=== PATIENT | male | born 1950 | race Caucasian/White ===

== ENCOUNTER 2017-11-16 06:28 | Outpatient (CLI) | payer OTHER ==
[~2017-11-16 06:28] MED LIST: Prevnar 13-Val Conj/PF 0.5 ML SYRINGE IM ONE
[2017-11-16 07:53] VITALS: TEMP 99.1
[2017-11-16] MEDS ORDERED: HYDROcodone/Acetaminophen 10/325 mg Tablet ONE (09:23)
--- NOTE | 2017-11-16 09:50 | RAD ---
CERVICAL SPINE MYELOGRAM INDICATION: Cervical spondylosis, neck pain, cervical myelopathy. PROCEDURE: After informed consent had been obtained, the patient was escorted to the interventional suite and pl aced on the procedural table. 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 The patient was placed into a prone posi tion. Skin on the low back was then prepped and draped in the standard sterile fashion and topical a nd regional soft tissue anesthesia was achieved with 1% lidocaine and sodium bicarbonate. Posterior L3-4 interlaminar approach was selected, and a 22 gauge needle was uneventfully advanced into the th ecal sac with clear color CSF. Subsequently, 9 cc Isovue-M 300 was instilled into the thecal sac und er real time fluoroscopy. Appropriate opacification of thecal sac demonstrated with imaging stored f or confirmation. The needle was then removed from the patient. The patient tolerated the procedure well and was then transferred to CT to undergo subsequent myelogram. Reference separate report for f ull details. IMPRESSION: Technically successful cervical myelogram as detailed above. POS: [facility]
--- NOTE | 2017-11-16 10:15 | CT ---
CERVICAL SPINE CT WITH CONTRAST CT CERVICAL MYELOGRAM: INDICATION: Cervical spondylosis with cervical myelopathy. 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 FINDINGS: Anterior metallic fusion is present involving the C5 and C6 segments. There is anterior osseous fusi on of the C3 through C5 segments as well as partial posterior osseous fusion. Degenerative hypertrophy at the C1-2 level is present. No high-grade central canal stenosis of C1-2 or C2-3 levels. At C2-3 level, neural foramen are patent. C3-4: Broad-based osteophyte is present, most focal at the right paracentral region. This mildly ef faces the ventral thecal sac. There is uncinate process hypertrophy with mild narrowing of the right neural foramen. The left neural foramen is patent. C4-5: Broad-based osteophyte produces mild effacement of the ventral thecal sac. There is no signif icant foraminal stenosis. C5-6: Broad-based osteophyte results in mild effacement of the ventral thecal sac. There is bilater al uncinate process hypertrophy with mild bilateral neural foraminal narrowing. C6-7: There is no significant compromise of the central canal or neural foramina. BROAD-BASED osteo phyte mildly effaces the ventral thecal sac. C7-T1: No high-grade central canal or neural foraminal stenosis. There is multilevel bilateral degenerative facet hypertrophy throughout the cervical spine. With regard to C6 level vertebral body screws, these approximate the inferior end plate and there is perihardware lucency about each of the C6 vertebral body screws. This indicates hardware loosening. IMPRESSION: 1. Multilevel degenerative change of the postoperative cervical spine, as outlined above. 2. There is lucency about the 2 indwelling C6 vertebral body screws indicative of hardware loosening . Recommend clinical correlation in this regard. POS: [facility]
[2017-11-16] MEDS ORDERED: Iopamidol-M 300 61% 15 ML VIAL ONE (15:08)
== END 2017-11-16 10:35 | disposition home or self-care (01) ==
LOC: RAD 06:28
PROVIDERS: ATTEND Neurological Surgery
DX: M47.12 Other spondylosis with myelopathy, cervical region (principal); M99.81 Other biomechanical lesions of cervical region; Z98.1 Arthrodesis status
CPT/HCPCS: 62302; 72126

== ENCOUNTER 2018-01-23 07:06 | Inpatient (IN) | payer OTHER ==
[2018-01-23] MEDS ORDERED: CEFAZOLIN/Water 2 GM/20 ML SYRINGE ONE (07:39)
[2018-01-23 07:59] LABS: Hemoglobin 11.9 g/dL (14.0-18.0); Mean Platelet Volume 6.2 fL (7.4-10.4); Platelet Count 172 thou/uL (130-400); RBC Distribution Width 11.1 % (11.5-14.5); Red Blood Cell (RBC) Count 3.83 mill/uL (4.70-6.10); White Blood Cell (WBC) Count 5.3 thou/uL (4.8-10.8)
[2018-01-23] MEDS ORDERED: Clindamycin/D5W 900 mg/50 ml Premix Bag ONE (08:12)
[2018-01-23 08:13] LABS: Anion Gap 12 mmol/L (10-20); BUN (Urea Nitrogen) 15 mg/dL (8.4-25.7); Calc. Creatinine Clearance 96 mL/min (70-130); Calcium 9.3 mg/dL (7.8-10.44); Carbon Dioxide 26 mmol/L (23-31); Chloride 105 mmol/L (98-107); Estimated GFR-MDRD Greater than 90; Glucose 88 mg/dL (80-115); Potassium 3.9 mmol/L (3.5-5.1); Sodium 139 mmol/L (136-145)
[2018-01-23] MEDS ORDERED: Levofloxacin 500 mg/D5W 100 ml Premix Bag ONE (08:13)
[2018-01-23 08:19] LABS: Eosinophils 2 % (0-10); Lymphocytes 46 % (21-51); MDiff Complete? YES; Metamyelocyte 1 % (0-0); Monocytes 7 % (0-10); Neutrophil 40 % (42-75); RBC Morphology Normal; Reactive Lymphocytes 2 % (0-10)
[2018-01-23] MEDS ORDERED: Midazolam HCl 2 mg/2 ml Vial ONE (09:59)
[2018-01-23] MEDS ORDERED: Fentanyl 100 MCG/2 ML VIAL ONE ×4 (09:59→13:44)
[2018-01-23] MEDS ORDERED: Sodium Chloride 0.9% 10 ML ONE (10:25)
[2018-01-23] MEDS ORDERED: Thrombin 5000 UNITS/5 ML VIAL ONE (10:25)
[2018-01-23] MEDS ORDERED: Bacitracin Zinc Ointment 30 gm TUBE ONE (10:25)
[2018-01-23] MEDS ORDERED: Lidocaine 2% Jelly 5 ML TUBE ONE (10:47)
[2018-01-23] MEDS ORDERED: PHENYLEPHRINE-NS 100 MCG/ML 10 ML SYRINGE ONE ×2 (12:17→12:31)
[2018-01-23] MEDS ORDERED: Dexamethasone 20 MG/5 ML VIAL ONE (12:31)
[2018-01-23] MEDS ORDERED: PROPOFOL 200 MG/20 ML VIAL ONE (12:31)
[2018-01-23] MEDS ORDERED: Glycopyrrolate 0.2 MG/ML 5 ML SYRINGE ONE (12:31)
[2018-01-23] MEDS ORDERED: Ondansetron HCl/PF 4 MG/2 ML Vial ONE (12:31)
[2018-01-23] MEDS ORDERED: Morphine 4 MG/ML Carpuject SLOW IVP PRN (13:15)
[2018-01-23] MEDS ORDERED: HYDROcodone/Acetaminophen 10/325 mg Tablet PO PRN (13:15)
[2018-01-23] MEDS ORDERED: diphenhydrAMINE 50 MG/ML VIAL IVP PRN (13:15)
[2018-01-23] MEDS ORDERED: Milk Of Magnesia 30 ML UDCUP PO PRN (13:15)
[2018-01-23] MEDS ORDERED: Promethazine HCl 12.5 MG SUPP PR PRN (13:15)
[2018-01-23] MEDS ORDERED: Mag-Al 1200 mg/1200 mg/30 ML UDCUP PO PRN (13:15)
[2018-01-23] MEDS ORDERED: traMADol HCl 50 MG TAB PO PRN ×2 (13:15)
[2018-01-23] MEDS ORDERED: Promethazine HCl 25 MG/ML VIAL IM PRN ×2 (13:15→13:16)
[2018-01-23] MEDS ORDERED: diphenhydrAMINE 25 MG CAP PO PRN (13:15)
[2018-01-23] MEDS ORDERED: Promethazine 25 MG TAB PO PRN (13:15)
[2018-01-23] MEDS ORDERED: Promethazine HCl 25 MG/ML VIAL SLOW IVP PRN (13:16)
[2018-01-23] MEDS ORDERED: Ondansetron HCl/PF 4 MG/2 ML Vial IVP PRN ×2 (13:16→13:18)
[2018-01-23] MEDS ORDERED: Promethazine HCl 25 MG/ML VIAL ONE (13:31)
--- NOTE | 2018-01-23 13:33 | OP ---
DATE OF PROCEDURE: 01/23/2018 SURGEON: Harley Oneal M.D. RADIATION THERAPY TECHNOLOGIST: Margie Godoy PA-C. PROCEDURES: Removal of hardware C5-C6, exploration of spinal fusion C5-C6, interbody arthrodesis C5- C6 and C6-C7, intervertebral biomechanical device C6-C7, anterior titanium instrumentation C5-C7, dem ineralized bone matrix and local morselized autograft, posterior approach C5-C7, posterolateral arthr odesis, lateral mass screw instrumentation, demineralized bone matrix, local morselized autograft C5- C7. PROCEDURE IN DETAIL: The patient was brought into the operating room and intubated. He was position ed supine with head in modest extension on a gel-filled donut. Previous incision was reopened in the right precervical area and dissecting medial to the sternocleidomastoid muscle identified the previo us plate that was removed without difficulty. We explored the spinal fusion. It did not seem to be solid. The disk space itself, however, was completely collapsed and irregular and could not be adequ ately accessed for placing the intravertebral device, although was scraped out for the purpose of art hrodesis. We placed distraction across C6-C7, debrided anterior osteophytes and removed the intraver tebral disc. The bony endplates were decorticated for the purpose of arthrodesis and an appropriatel y sized intravertebral biomechanical PEEK device was then brought into the field, filled with deminer alized bone matrix and local morselized autograft and tapped into place securely at C6-C7. Next, an anterior plate was brought into the field and secured to C5 and to C7 using two 14 mm screws at each level. The wound was then extensively irrigated, immaculate hemostasis was secured and the wound was closed in anatomic layers over a drain. The patient was then rolled in the prone position with the head fixed in the yanira nailhead setter in a neutral position on gel-filled chest rolls. The posterior cervical incision was made in the midline exposing C5 through C7 and our level was confirmed by x-ray. We placed right C5, C6 and C7 lateral m ass screws. A leni was secured between the screws, connected by nuts, which were final tightened. Th e wound was then extensively irrigated, immaculate hemostasis was secured. A combination of deminera lized bone matrix and local morselized autograft was laid over the left laminar and posterolateral potts rfaces for the purpose of arthrodesis. Vancomycin powder was applied and the wound was then closed i n anatomic layers.
[2018-01-23] MEDS ORDERED: HYDROmorphone 2 MG/ML VIAL ONE ×3 (13:54→14:23)
[2018-01-23] MEDS ORDERED: Ketamine 50 MG/ML VIAL ONE (14:39)
[2018-01-23] MEDS ORDERED: Cyclobenzaprine 10 MG TAB PO PRN (16:26)
[2018-01-23] MEDS: Sodium Chloride 0.9% 1,000 ML IV SCH (16:30)
[2018-01-23] MEDS ORDERED: Ondansetron ODT 4 MG TAB PO PRN (16:30)
[2018-01-23] MEDS ORDERED: Morphine 4 MG/ML VIAL SLOW IVP PRN (17:21)
--- NOTE | 2018-01-23 17:23 | CON ---
DATE OF CONSULTATION: 01/23/2018 TIME OF SERVICE: 16:45 REASON FOR CONSULTATION: Medical management status post anterior cervical diskectomy and fusion/cerv ical laminectomy. HISTORY OF PRESENT ILLNESS: Mr. Jenkins is a 67-year-old white male with history of hypertension, pep tic ulcer disease, anxiety, dysphagia and cervical radiculopathy who is now postop day 0 from an ante rior cervical diskectomy and fusion/cervical laminectomy by Dr. Harley Oneal. There were no not ed intraoperative complications. Primary care physician is out of town and we have been consulted fo r medical management postop. The patient has no current complaints. He is still somewhat groggy fro m anesthesia, but says the pain is under fairly good control right now. Denies any chest pain, shortness of breath or nausea or vomiting. PAST MEDICAL HISTORY: 1. Hypertension. 2. Peptic ulcer disease. 3. Anxiety. 4. Dysphagia. 5. Cervical radiculopathy. PAST SURGICAL HISTORY: Includes, 1. C-spine surgery x2. 2. Lumbar surgery x1. 3. Spinal stimulator implantation. HOME MEDICATIONS: 1. Lisinopril 10 mg p.o. q.a.m. 2. Hydrocodone/APAP 10/325 two p.o. q.4 hours p.r.n. 3. Flexeril 10 mg p.o. t.i.d. p.r.n. 4. Clonazepam 1 mg p.o. q.a.m. 5. Aspirin 325 mg daily, on hold for the last week. 6. Gabapentin 300 mg p.o. as needed. 7. Mirtazapine 15 mg p.o. at bedtime. 8. Omeprazole 20 mg p.o. q.a.m. 9. Zofran ODT 4 mg p.o. p.r.n. nausea, vomiting. ALLERGIES: 1. CODEINE causes severe nausea and vomiting, but not a true allergy. 2. PENICILLIN caused hives. FAMILY HISTORY: Significant for hypertension, COPD, cerebrovascular disease and coronary artery dise ase. SOCIAL HISTORY: Significant for occasional alcohol, no tobacco, no IV drug use history. REVIEW OF SYSTEMS: All systems reviewed and negative except stated as per HPI. PHYSICAL EXAMINATION: VITAL SIGNS: The patient is afebrile. His vital signs are normal. Please see the nursing intake sh eet. GENERAL: He is awake. He is alert. He is oriented x3, somewhat groggy and appears to be in no acut e distress. He is a thin white male, appears to be comfortable. HEENT: Normocephalic, atraumatic. Pupils are equal, round, reactive to light bilaterally, mucous me mbranes are moist. No visible lesions. No thrush. Nasal cannula in place. NECK: Supple. He has an anterior postop dressing that was not removed. Range of motion was not beata arin and he has no JVD. Normal carotid upstroke. There are no bruits. LUNGS: Clear to auscultation bilaterally with good air movement. Symmetrical chest excursion. No p rolonged expiratory face. No wheeze, no rales, no rhonchi. CARDIOVASCULAR: Normal S1 and S2. No S3 or S4. No audible murmurs. ABDOMEN: Soft, scaphoid, nontender, nondistended. He has got normoactive bowel sounds present in al l upper quadrants. There is no rebound, rigidity or guarding. EXTREMITIES: Showed no clubbing, no edema. He has got 2+ dorsalis pedis, posterior tibial, and radi al pulses bilaterally. SKIN: Warm, moist, and well perfused. There are no rashes or lesions. IV sites are intact. MUSCULOSKELETAL: Exam is unremarkable. Large joints appear normal. There is no evidence of inflamm ation. No palpable effusions. NEUROLOGIC: Cranial nerves II through XII are grossly intact. He has got 5/5 strength in all 4 of h is extremities. No focal deficits. Normal speech pattern. LABORATORY DATA: Preop labs this morning show sodium of 139, potassium 3.9, chloride 105, bicarb 26, BUN 15, creatinine 0.83, glucose 88 and calcium 9.3. CBC showed a white count of 5.3, hemoglobin 11.9, hematocrit 36.0, platelet count 172,000 with a norm al differential. ASSESSMENT AND PLAN: 1. Hypertension, essential. Continue home medications. 2. Peptic ulcer disease. Continue acid suppression with omeprazole or formulary equivalent. 3. Anxiety on clonazepam. We will continue. 4. History of dysphagia. 5. Cervical radiculopathy status post anterior cervical diskectomy and fusion/laminectomy. Postop c are routine per Dr. Oneal. Pain control per Dr. Oneal. Thank you very much for this consult. I will follow along with you.
[2018-01-23] MEDS: Clindamycin/D5W 900 MG in Premix Bag 1 BAG IVPB SCH (18:46)
[2018-01-23] MEDS: HYDROcodone/Acetaminophen 10/325 mg Tablet PO PRN (19:00)
[2018-01-23] MEDS ORDERED: Prevnar 13-Val Conj/PF 0.5 ML SYRINGE IM ONE (19:45)
[2018-01-23] MEDS: Mirtazapine 15 MG TAB PO SCH (21:13)
[2018-01-23] MEDS: tiZANidine HCl 4 MG TAB PO PRN (22:33)
[2018-01-24] MEDS: HYDROcodone/Acetaminophen 10/325 mg Tablet PO PRN ×6 (01:28→23:16)
[2018-01-24] MEDS: Clindamycin/D5W 900 MG in Premix Bag 1 BAG IVPB SCH ×2 (01:29→10:38)
[2018-01-24] MEDS: Sodium Chloride 0.9% 1,000 ML IV SCH (02:36)
[2018-01-24] MEDS: Gabapentin 300 MG CAP PO PRN (06:29)
[2018-01-24] MEDS: Lisinopril 10 MG TAB PO SCH (08:26)
[2018-01-24] MEDS: clonazePAM 1 MG TAB PO SCH (08:26)
[2018-01-24] MEDS: tiZANidine HCl 4 MG TAB PO PRN (08:31)
[2018-01-24] MEDS ORDERED: MILK THISTLE SEED EXTRACT PO SCH (09:00)
--- NOTE | 2018-01-24 13:33 | PDOC.PN ---
- Subjective Encounter Start Date: 01/24/18 Encounter Start Time: 11:00 sleeping soundly, pain fairly well controlled, eating and swallowing NSG planning to discharge tomorrow. ROYA drains discontinued No F/C, no N/V/D/C, no CP or SOB, no acute overnight events, no new complaints All systems reviewed and neg except as stated above - Objective Resuscitation Status: Resuscitation Status FULL:Full Resuscitation MAR Reviewed: Yes Vital Signs & Weight: Vital Signs (12 hours) Temp Pulse Resp BP BP Pulse Ox 01/24/18 08:26 129/74 01/24/18 08:00 98.4 F 101 H 18 129/74 96 01/24/18 06:31 101 H 97/58 L 01/24/18 04:32 98.4 F 115 H 18 95/58 L 96 Weight Weight 175 lb I&O: 01/23/18 01/24/18 01/25/18 06:59 06:59 06:59 Intake Total 1050 Output Total 15 5 Balance 1035 -5 Result Diagrams: 01/23/18 07:45 01/23/18 07:44 Phys Exam - Physical Examination Constitutional: NAD HEENT: PERRLA, moist MMs, sclera anicteric, oral pharynx no lesions Neck: no nodes, no JVD, supple dressing C/D/I, no strikethrough Respiratory: no wheezing, no rales, no rhonchi, clear to auscultation bilateral Cardiovascular: RRR, no significant murmur, no rub Gastrointestinal: soft, non-tender, no distention, positive bowel sounds Musculoskeletal: no edema, pulses present Neurological: non-focal, normal sensation, moves all 4 limbs Lymphatic: no nodes Psychiatric: normal affect, A&O x 3 Skin: no rash, normal turgor, cap refill <2 seconds Dx/Plan (1) HTN (hypertension) Code(s): I10 - ESSENTIAL (PRIMARY) HYPERTENSION Status: Chronic Qualifiers: Hypertension type: essential hypertension Qualified Code(s): I10 - Essential (primary) hypertension (2) GERD without esophagitis Code(s): K21.9 - GASTRO-ESOPHAGEAL REFLUX DISEASE WITHOUT ESOPHAGITIS Status: Chronic (3) Anxiety Code(s): F41.9 - ANXIETY DISORDER, UNSPECIFIED Status: Chronic (4) Cervical radiculopathy Code(s): M54.12 - RADICULOPATHY, CERVICAL REGION Status: Chronic Comment: s/ p c5-c7 laminectomy and ACDF by Dr Oneal - Plan cont current plan of care, plan discussed w/ family, continue antibiotics, 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
[2018-01-24] MEDS: Clindamycin 150 MG CAP PO SCH ×3 (13:45→20:00)
[2018-01-24] MEDS: Mirtazapine 15 MG TAB PO SCH (20:00)
[2018-01-25] MEDS: tiZANidine HCl 4 MG TAB PO PRN (03:28)
[2018-01-25] MEDS: Gabapentin 300 MG CAP PO PRN (03:28)
[2018-01-25] MEDS: HYDROcodone/Acetaminophen 10/325 mg Tablet PO PRN ×2 (05:44→10:04)
[2018-01-25 07:42] VITALS: TEMP 97.7
--- NOTE | 2018-01-25 08:12 | DIS ---
DATE OF ADMISSION: 01/23/2018 DATE OF DISCHARGE: 01/25/2018 ATTENDING PHYSICIAN: Dr. Harley Oneal HOSPITAL COURSE: The patient is a 67-year-old male status post removal of hardware, C5-C7 ACDF, C5-C7 posterior fusion. His surgery was uncomplicated and following the event he was admitted to the med/surg floor where his pain was well controlled with p.o. medications. He is tolerating a r egular diet, and voiding appropriately. He did have a ROYA drain placed in intraoperatively which had minimal output and was removed on postoperative day #1. The patient has been ambulating without diff iculty in the hallway. The patient is comfortable this morning in the bed in no acute distress. His dressings remained dry and his incisions remain soft. He has 5/5 strength throughout. No focal motor weakness and sensatio n is intact to light touch. We will plan to dismiss the patient to home. Discussed precautions. We will plan to follow up with the patient next week in the office. His pain management doctor will be managing all his outpatient pain medicines. I provided him with a script for clindamycin. Please reach out to Neurosurgery for additional questions or concerns.
[2018-01-25] MEDS: Lisinopril 10 MG TAB PO SCH (09:07)
[2018-01-25] MEDS: Clindamycin 150 MG CAP PO SCH (09:09)
[2018-01-25] MEDS: clonazePAM 1 MG TAB PO SCH (09:10)
[2018-01-25 09:18] VITALS: BP 108/70
--- NOTE | 2018-01-25 12:16 | PDOC.PN ---
- Subjective Encounter Start Date: 01/25/18 Encounter Start Time: 08:30 PT DOING WELL, VITALS GOOD, BEING DISCHARGED HOME No f/, no n/V/d/C, no Cp no SOB, pain controlled. All systems reviewed and neg x as above - Objective Resuscitation Status: Resuscitation Status FULL:Full Resuscitation MAR Reviewed: Yes Vital Signs & Weight: Vital Signs (12 hours) Temp Pulse Resp BP BP Pulse Ox 01/25/18 09:07 108/70 01/25/18 07:35 97.7 F 88 18 103/69 96 01/25/18 04:00 98 F 90 16 99/67 95 Weight Weight 175 lb I&O: 01/24/18 01/25/18 01/26/18 06:59 06:59 06:59 Intake Total 1050 1590 Output Total 15 5 Balance 1035 1585 Result Diagrams: 01/23/18 07:45 01/23/18 07:44 Phys Exam - Physical Examination Constitutional: NAD HEENT: PERRLA, moist MMs, sclera anicteric, oral pharynx no lesions Neck: no nodes, no JVD, supple, full ROM dressing C/d/I Respiratory: no wheezing, no rales, no rhonchi, clear to auscultation bilateral Cardiovascular: RRR, no significant murmur Gastrointestinal: soft, non-tender, no distention, positive bowel sounds Musculoskeletal: no edema Neurological: non-focal, normal sensation, moves all 4 limbs Lymphatic: no nodes Psychiatric: normal affect, A&O x 3 Skin: no rash, normal turgor, cap refill <2 seconds Dx/Plan (1) HTN (hypertension) Code(s): I10 - ESSENTIAL (PRIMARY) HYPERTENSION Status: Chronic Qualifiers: Hypertension type: essential hypertension Qualified Code(s): I10 - Essential (primary) hypertension (2) GERD without esophagitis Code(s): K21.9 - GASTRO-ESOPHAGEAL REFLUX DISEASE WITHOUT ESOPHAGITIS Status: Chronic (3) Anxiety Code(s): F41.9 - ANXIETY DISORDER, UNSPECIFIED Status: Chronic (4) Cervical radiculopathy Code(s): M54.12 - RADICULOPATHY, CERVICAL REGION Status: Chronic Comment: s/ p c5-c7 laminectomy and ACDF by Dr Oneal - Plan * .
== END 2018-01-25 10:29 | disposition home or self-care (01) | DRG 30 ==
LOC: SURG A 07:06 → SURG B 14:02
PROVIDERS: ADMIT Neurological Surgery; ATTEND Neurological Surgery
PROC: 0RG20AJ Fusion of 2 or more Cervical Vertebral Joints with Interbody Fusion Device, Posterior Approach, Anterior Column, Open Approach (ICD-10-PCS; principal; 2018-01-23)
DX: M54.12 Radiculopathy, cervical region (principal); I10 Essential (primary) hypertension; F41.9 Anxiety disorder, unspecified; K27.9 Peptic ulcer, site unspecified, unspecified as acute or chronic, without hemorrhage or perforation; K21.9 Gastro-esophageal reflux disease without esophagitis; Z88.0 Allergy status to penicillin; Z88.5 Allergy status to narcotic agent; Z79.899 Other long term (current) drug therapy
CPT/HCPCS: 36415; 76001; 80048; 85025; A4216; C1713; C1768; C1776; J1100; J1170; J1200; J1956; J2250; J2270; J2405; J2550; J2704; J3010; J3370; J3490